=== PATIENT | female | born 1940 | race Caucasian/White ===

== ENCOUNTER 2022-03-18 08:31 | Emergency (ER) | payer MEDICARE, BC ==
[2022-03-18 09:38] LABS: ANION GAP 7.6 mmol/L (5-15)
[2022-03-18] MEDS ORDERED: Morphine 2 MG/ML SYRINGE IVPUSH ONE ×2 (09:43→12:01)
[2022-03-18] MEDS ORDERED: Lidocaine 1% 5 ML VIAL INJECT ONE (09:55)
[2022-03-18] MEDS ORDERED: NS + KCl 20mEq/L 1,000 ML IV SCH (10:00)
[2022-03-18] MEDS ORDERED: Acetaminophen 325 MG Tab ONE (11:06)
[2022-03-18] MEDS ORDERED: Acetaminophen 325 MG Tab PO ONE (11:07)
[2022-03-18] MEDS ORDERED: Morphine 2 MG/ML SYRINGE ONE (12:03)
== END 2022-03-18 13:30 ==
LOC: KA.ED 08:31
DX: S01.112A Laceration without foreign body of left eyelid and periocular area, initial encounter (principal); E87.6 Hypokalemia; I48.91 Unspecified atrial fibrillation; N18.9 Chronic kidney disease, unspecified; D63.1 Anemia in chronic kidney disease; Z87.891 Personal history of nicotine dependence; Z88.0 Allergy status to penicillin; Z88.8 Allergy status to other drugs, medicaments and biological substances; W18.09XA Striking against other object with subsequent fall, initial encounter
CPT/HCPCS: 12001; 12011; 36415; 70450; 80053; 84132; 84484; 85025; 85730; 93005; 93010; 96365; 96366; 96375; 96376; 99284; 99284-25; A9270-GY; J2270; J3480